=== PATIENT | female | born 1960 ===

== ENCOUNTER 2020-12-19 10:04 | Day surgery (SDC) | payer BC ==
[~2020-12-19] VITALS: Ht 157.5 cm; Wt 54.1 kg
[2020-12-19] MEDS ORDERED: ALLEGRA ALLERG180 MG (10:23)
== END 2020-12-19 11:43 | disposition home or self-care (01) ==
LOC: ORSCSDS 10:04
PROVIDERS: Student in an Organized Health Care Education/Training Program
PROC: 0DBL8ZX Excision of Transverse Colon, Via Natural or Artificial Opening Endoscopic, Diagnostic (ICD-10-PCS; principal; 2020-12-19 11:15)
DX: R19.4 Change in bowel habit (principal); D12.3 Benign neoplasm of transverse colon; K57.30 Diverticulosis of large intestine without perforation or abscess without bleeding; E78.5 Hyperlipidemia, unspecified; Z87.891 Personal history of nicotine dependence; Z79.899 Other long term (current) drug therapy
CPT/HCPCS: 88305; J2704; J7120